=== PATIENT | male | born 1965 | race Caucasian/White ===

== ENCOUNTER 2022-12-28 14:26 | Emergency (ER) | payer OTHER ==
[~2022-12-28] VITALS: Ht 185.4 cm; Wt 104.3 kg
[2022-12-28 14:30] VITALS: BP 162/88
--- NOTE | 2022-12-28 14:30 | NUR ---
ARRIVAL PATIENT ARRIVED TO [facility], C/O BLOODY EMESIS X1 TODAY AFTER EATING BREAKFAST, CONCERNED AND DECIDED TO COME TO THE ED FOR EVAL, VITAL SIGNS TAKEN AND DOCTOR NOTIFIED OF PATIENT'S ARRIVAL.
--- NOTE | 2022-12-28 14:45 | ER.PDOC ---
General Chief Complaint: General Complaint Stated Complaint: VOMITING BLOOD Time seen by MD: 14:44 Source: patient Exam Limitations: no limitations History of Present Illness Initial Comments Had dry heaves FIRST, and threw up some food, after that had some more dry heaves and threw up bright red blood 1 time Timing/Duration: 1/2 hour Severity/Quality: mild Allergies: Coded Allergies: No Known Allergies (Unverified , 12/28/22) Past Medical History Medical History: high cholesterol, hypertension, other Surgical History: other Social History Alcohol Use: none Drug Use: none Reviewed Nursing Reviewed: Vital Signs, Abn. Noted Constitutional: no symptoms reported EENTM: no symptoms reported Respiratory: no symptoms reported Cardiovascular: no symptoms reported ABD/GI (ROS): no symptoms reported Genitourinary: no symptoms reported Musculoskeletal: no symptoms reported Skin: no symptoms reported All Other Systems: Reviewed and Negative Physical Exam General Appearance: No Apparent Distress, WD/WN EENT: eyes nml inspection, nml ENT inspection, pharynx nml Neck: nml inspection, non-tender Respiratory: chest non-tender, lungs clear, normal breath sounds, no respiratory distress, no accessory muscle use Cardiovascular: Normal Peripheral Pulses, Regular Rate, Rhythm, No Edema, No Gallop, No JVD, No Murmur Gastrointestinal: Normal Bowel Sounds, No Organomegaly, No Pulsatile Mass, Non Tender, Soft Back: Normal Inspection, No CVA Tenderness, No Vertebral Tenderness Extremities: Normal Range of Motion, Non-Tender, Normal Inspection, No Pedal Edema, No Calf Tenderness, Normal Capillary Refill Neurologic/Psychiatric: reconsignment clerk II-XII NML as Tested, No Motor/Sensory Deficits, Alert, Normal Mood/Affect, Oriented x 3 Skin: Normal Color, Warm/Dry Lymphatic: No Adenopathy Results/Orders Results/Orders Orders - BHARGAV GILMORE MD Cbc With Auto Diff (12/28/22 14:43) Comprehensive Metabolic Panel (12/28/22 14:43) Amylase (12/28/22 14:43) Lipase. (12/28/22 14:43) Helicobacter Pylori (12/28/22 14:43) PT (12/28/22 14:43) Partial Thromboplastin Time. (12/28/22 14:43) Type And Screen (12/28/22 14:43) Pantoprazole Sodium (Protonix Iv) (12/28/22 14:47) Pantoprazole Sodium (Protonix Iv) (12/28/22 14:52) Sulfamethoxazole/Trimethoprim (Bactrim D (12/28/22 15:42) Vital Signs Date Time Temp Pulse Resp B/P (MAP) Pulse Ox O2 Delivery O2 Flow Rate FiO2 12/28/22 14:30 98.3 58 18 12/28/22 14:30 98.3 58 18 97 12/28/22 14:30 98.3 58 18 162/88 (112) 97 Room Air* 0 21 Administered Medications Medications (Trade) Dose Ordered Sig/Adam Route PRN Reason Start Time Stop Time Status Last Admin Dose Admin Pantoprazole Sodium (Protonix Iv) 80 mg STAT STAT IV 12/28/22 14:47 12/28/22 14:48 DC 12/28/22 15:01 80 MG Laboratory Tests Test 12/28/22 14:55 White Blood Count 8.3 10^3/uL (4.5-11.0) Red Blood Count 5.07 10^6/uL (4.50-5.90) Hemoglobin 15.2 g/dL (13.9-16.3) Hematocrit 45.0 % (37.0-53.0) Mean Corpuscular Volume 88.8 fL (78-100) Mean Corpuscular Hemoglobin 30.0 pg (26-34) Mean Corpuscular Hemoglobin Concent 33.8 g/dL (33-36.5) Red Cell Distribution Width 12.5 % (11.5-14.5) Platelet Count 303 10^3/uL (150-400) Mean Platelet Volume 9.6 fL (7.8-11.0) Neutrophils (%) (Auto) 77.3 % (41.0-85.0) Lymphocytes (%) (Auto) 13.1 % (24.0-44.0) L Monocytes (%) (Auto) 4.7 % (5.0-12.0) L Neutrophils # (Auto) 6.4 10^3/uL (1.8-7.7) Lymphocytes # (Auto) 1.09 10^3/uL1 (1.0-4.8) Monocytes # (Auto) 0.4 10^3/uL (0.3-0.8) Absolute Immature Granulocyte (auto 0.03 10^3 u/L (0-2) Absolute Eosinophils (auto) 0.3 10^3/uL (0.0-0.2) H Immature Granulocytes % 0.40 % (0.00-0.50) Eosinophils % 4.0 % (0.0-5.0) Basophils % 0.5 % (0.0-0.2) H Basophils # 0.0 10^3/uL (0.0-0.1) Prothrombin Time 9.9 SEC (9.1-11.5) INR 1.0 Activated Partial Thromboplast Time 25.0 SEC (22.5-33.1) Sodium Level 140 mmol/L (132-145) Potassium Level 3.9 mmol/L (3.6-5.2) Chloride Level 104.0 mmol/L (96-109) Carbon Dioxide Level 28.8 mmol/L (20.0-32) Anion Gap 11.1 Blood Urea Nitrogen 21 mg/dL (7-18) H Creatinine 1.18 mg/dL (0.59-1.40) Estimated GFR () 76.5 (>/=60) Est GFR (CKD-EPI)(Non-Afr [place]) 63.2 (>/=60) BUN/Creatinine Ratio 17.0 (10.0-20.0) Glucose Level 117 mg/dL (70-110) H Calcium Level 8.8 mg/dL (8.4-10.5) Total Bilirubin 0.4 mg/dL (0.2-1.0) Aspartate Amino Transferase (AST) 13 U/L (0-35) Alanine Aminotransferase (ALT) 31 U/L (12-78) Alkaline Phosphatase 79 U/L (50-136) Total Protein 7.4 g/dL (6.4-8.2) Albumin 3.9 g/dL (3.4-5.0) Globulin 3.5 Albumin/Globulin Ratio 1.114 Amylase Level 89 U/L (25-115) Lipase 40 U/L (16-77) Helicobacter pylori Screen NEGATIVE (NEGATIVE) Blood Bank Test 12/28/22 14:55 Antibody Screen NEGATIVE Blood Type A POSITIVE ER DEPART Departure Time of Disposition: 16:22 Disposition: 01 HOME / SELF CARE / HOMELESS Impression: Primary Impression: [place] tear Condition: Improved Referrals: PCP,UNKNOWN (PCP) PRIMARY CARE PROVIDER Duration or Time Spent with Pa: 14M BHARGAV GILMORE MD Dec 28, 2022 14:45
[2022-12-28] MEDS ORDERED: PROTONIX IV IV ONE (14:52)
[2022-12-28] MEDS: PROTONIX IV IV STA (15:01)
[2022-12-28 15:07] LABS: BASOPHIL % 0.5 % (0.0-0.2); EOSINOPHIL # 0.3 10^3/uL (0.0-0.2); LYMPHOCYTES # 1.09 10^3/uL1 (1.0-4.8); LYMPHOCYTES % 13.1 % (24.0-44.0); MONOCYTES # 0.4 10^3/uL (0.3-0.8); MONOCYTES % 4.7 % (5.0-12.0); NEUTROPHIL # 6.4 10^3/uL (1.8-7.7); NEUTROPHILS % 77.3 % (41.0-85.0); PLATELET COUNT 303 10^3/uL (150-400); RED CELL DISTRIBUTION WIDTH 12.5 % (11.5-14.5)
[2022-12-28 15:38] LABS: CARBON DIOXIDE 28.8 mmol/L (20.0-32)
[2022-12-28] MEDS ORDERED: BACTRIM DS ONE (15:42)
[2022-12-28 16:13] VITALS: BP 158/97
== END 2022-12-28 16:16 | disposition home or self-care (01) ==
LOC: ER 14:26
DX: K22.6 Gastro-esophageal laceration-hemorrhage syndrome (principal); E78.00 Pure hypercholesterolemia, unspecified; I10 Essential (primary) hypertension
CPT/HCPCS: 99283; 96374; 80053; 85025; 86677; 36415; 82150; 83690; 85610; 85730; 86900; C9113

== ENCOUNTER 2023-09-26 21:01 | Inpatient (IN) | payer OTHER ==
[~2023-09-26] VITALS: Ht 185.4 cm; Wt 97.3 kg
[2023-09-26 21:46] VITALS: BP 156/96; PULSE 76; RESP 20; TEMP 99; O2SAT 100
[2023-09-26] MEDS ORDERED: TORADOL IV STA (21:52)
[2023-09-26 21:59] LABS: BILIRUBIN,URINE NEGATIVE (NEGATIVE); LEUKOCYTE ESTERASE ,URINE NEGATIVE (NEGATIVE); NITRATE,URINE NEGATIVE (NEGATIVE); PH,URINE 6.5 (4.5-8.0)
[2023-09-26 22:03] LABS: APPEARANCE,URINE CLOUDY; UA COLOR YELLOW
[2023-09-26] MEDS ORDERED: TORADOL ONE (22:07)
[2023-09-26 22:13] LABS: BASOPHIL % 0.3 % (0.0-0.2); EOSINOPHIL # 0.2 10^3/uL (0.0-0.2); HEMATOCRIT(ML) 44.8 % (37.0-53.0); HEMOGLOBIN 15.4 g/dL (13.9-16.3); LYMPHOCYTES # 0.95 10^3/uL1 (1.0-4.8); LYMPHOCYTES % 8.1 % (24.0-44.0); MEAN CORP HGB 30.1 pg (26-34); MEAN CORP HGB CONCENTRATION 34.4 g/dL (33-36.5); MEAN CORP VOLUME 87.7 fL (78-100); MONOCYTES # 0.7 10^3/uL (0.3-0.8); MONOCYTES % 5.6 % (5.0-12.0); NEUTROPHIL # 9.8 10^3/uL (1.8-7.7); NEUTROPHILS % 83.7 % (41.0-85.0); PLATELET COUNT 279 10^3/uL (150-400); RED BLOOD CELL 5.11 10^6/uL (4.50-5.90); RED CELL DISTRIBUTION WIDTH 12.5 % (11.5-14.5); WHITE BLOOD CELL 11.7 10^3/uL (4.5-11.0)
[2023-09-26 22:16] LABS: +ADD MANUAL DIFF(NO CHRG) NO
[2023-09-26 22:40] LABS: ALBUMIN(ML) 3.8 g/dL (3.4-5.0); ALBUMIN/GLOBULIN RATIO 0.926; ANION GAP 13.1; BUN/CREATININE RATIO 13.53 (10.0-20.0); CALCIUM 9.6 mg/dL (8.4-10.5); CARBON DIOXIDE 28.7 mmol/L (20.0-32); CREATININE SERUM 1.33 mg/dL (0.59-1.40); EST GFR, NON-AA 54.8 (>/=60); POTASSIUM 3.8 mmol/L (3.6-5.2)
[2023-09-26 22:45] VITALS: BP 119/76; PULSE 77; RESP 20; TEMP 99; O2SAT 100
[2023-09-26 23:45] VITALS: BP 115/75; PULSE 81; RESP 20; TEMP 99; O2SAT 100
[2023-09-26] MEDS ORDERED: NS 100ML 100 ML IV ONE (23:51)
[2023-09-26] MEDS ORDERED: ROCEPHIN ONE (23:51)
[2023-09-26] MEDS ORDERED: ROCEPHIN IV STA (23:55)
[2023-09-27] VITALS (30 sets, daily range): BP systolic 93–158; BP diastolic 54–84; PULSE 49–76; RESP 6–20; TEMP 96.8–98.9; O2SAT 92–100
[2023-09-27] MEDS ORDERED: NS 1000ML 1,000 ML IV STA (00:12)
[2023-09-27] MEDS ORDERED: ZOSYN 3.375 GM 3.375 GM in NS 100ML 100 ML IV STA (00:12)
[2023-09-27] MEDS ORDERED: NS 100ML 100 ML IV ONE ×2 (00:25→07:20)
[2023-09-27] MEDS ORDERED: NS 1000ML 1,000 ML ONE (00:25)
[2023-09-27 00:28] LABS: PROTHROMBIN PROTIME 10.3 SEC (9.7-11.6)
[2023-09-27] MEDS ORDERED: ZOFRAN IV PRN ×3 (01:00→11:00)
[2023-09-27] MEDS ORDERED: MORPHINE SULFATE IV PRN ×2 (01:00→10:30)
[2023-09-27 03:57] LABS: CORO 229E NotDetected (NotDetected); CORO HKU1 NotDetected (NotDetected); CORO OC43 NotDetected (NotDetected); RHINOVIRUS/ ENTEROVIRUS NotDetected (NotDetected); SARS CoV 2 NotDetected (NotDetected)
[2023-09-27] MEDS ORDERED: SODIUM CHLORIDE IRR BOTTLE IR ONE (06:57)
[2023-09-27] MEDS ORDERED: SENSORCAINE-MPF 0.25% VIAL ONE (06:57)
[2023-09-27] MEDS ORDERED: EXPAREL 266 MG/20 ML VIAL IJ ONE (07:16)
[2023-09-27] MEDS ORDERED: ZOSYN 3.375 GM 3.375 GM in NS 100ML 100 ML IV ONE (07:30)
[2023-09-27] MEDS ORDERED: LACTATED RINGERS 1,000 ML ONE ×2 (07:31→09:58)
[2023-09-27] MEDS ORDERED: OFIRMEV 1000 MG/100 ML 100 ML IV ONE (07:31)
[2023-09-27] MEDS ORDERED: TORADOL ONE (07:32)
[2023-09-27] MEDS ORDERED: DIPRIVAN IV ONE (07:32)
[2023-09-27] MEDS ORDERED: DECADRON ONE (07:32)
[2023-09-27] MEDS ORDERED: ZOFRAN ONE (07:32)
[2023-09-27] MEDS ORDERED: XYLOCAINE 2% 5ML VIAL ONE (07:32)
[2023-09-27] MEDS ORDERED: BRIDION IV ONE (07:32)
[2023-09-27] MEDS ORDERED: SUBLIMAZE 100MCG/2ML ONE (07:32)
[2023-09-27] MEDS ORDERED: GLUCAGEN IV ONE (09:30)
[2023-09-27] MEDS ORDERED: DEXTROSE 50%-WATER SYRINGE IV PRN (09:30)
[2023-09-27] MEDS ORDERED: D5W 1000ML 1,000 ML IV PRN (09:30)
[2023-09-27] MEDS ORDERED: DILAUDID IV ONE ×4 (10:13→10:33)
[2023-09-27] MEDS ORDERED: DILAUDID ONE (10:13)
[2023-09-27] MEDS ORDERED: REGLAN ONE (10:23)
[2023-09-27] MEDS ORDERED: REGLAN IV ONE (10:25)
[2023-09-27] MEDS ORDERED: TYLENOL PO PRN (11:00)
[2023-09-27] MEDS ORDERED: PHENERGAN IV PRN (11:00)
[2023-09-27] MEDS ORDERED: OXY-IR PO PRN ×2 (11:00)
== END 2023-09-27 18:45 | disposition home or self-care (01) | DRG 419 ==
LOC: ER 21:01 → ICU 09-27 00:17
PROVIDERS: ADMIT Student in an Organized Health Care Education/Training Program; ATTEND Student in an Organized Health Care Education/Training Program
PROC: 0FT44ZZ Resection of Gallbladder, Percutaneous Endoscopic Approach (ICD-10-PCS; principal; 2023-09-27 07:33)
DX: K80.12 Calculus of gallbladder with acute and chronic cholecystitis without obstruction (principal); I10 Essential (primary) hypertension; E78.00 Pure hypercholesterolemia, unspecified; Z79.899 Other long term (current) drug therapy
CPT/HCPCS: 36415; 74177; 80053; 81001; 83690; 85025; 85610; 85730; 87040; 87086; 87637; 93005; 99285; A4217; A4550; A6222; C9290; G0378; J0131; J0696; J1100; J1170; J1885; J2001; J2405; J2543; J2704; J2765; J3010; J3490; J7030; J7120; Q9965